=== PATIENT | female | born 1930 | race African-American/Black ===

== ENCOUNTER 2018-12-28 08:23 | Inpatient (IN) | payer OTHER ==
[~2018-12-28] VITALS: Ht 162.6 cm; Wt 53.5 kg
[2018-12-28] MEDS: ACETYLCYSTEINE 100MG/ML 10% VIAL 4ML INH SCH ×2 (00:40→11:15)
[2018-12-28] MEDS ORDERED: LEVOFLOXACIN 750MG PREMIX 150 ML IV ONE (09:45)
[2018-12-28] MEDS ORDERED: PIPERACILLIN/TAZ 3.375G PREMIX 50 ML IV ONE (09:45)
[2018-12-28 09:50] LABS: HEMATOCRIT. 24.1 % (36.0-48.0); HEMOGLOBIN. 7.7 g/dL (12.0-16.0); MEAN CORPUSCULAR HEMOGLOBIN 25.2 pg (28.0-32.0); MEAN CORPUSCULAR VOLUME 79.2 fL (81.0-99.0); MEAN PLATELET VOLUME 8.3 fl (7.4-10.4); PLATELET 276 x1000/uL (130-400); RED BLOOD CELL COUNT 3.04 mill/uL (4.2-5.4); RED CELL DISTRIBUTION WIDTH 18.4 % (11.6-14.6)
[2018-12-28 09:56] LABS: INR 1.2
[2018-12-28 09:57] LABS: CHLORIDE 103 mEq/L (98-107)
[2018-12-28 10:02] LABS: BG BASE EXCESS 5.1 mmol/L (-2.0-2.0); BG CARBOXYHEMOGLOBIN 1.2 % (0.5-1.5); BG DEOXYHEMOGLOBIN 0.2 % (0.0-5.0); BG FRACTION INSPIRED OXYGEN 100; BG HCO3 ACT 28.4 mmol/L (22.0-26.0); BG METHEMOGLOBIN 0.1 % (0.0-1.5); BG OXYGEN SATURATION 99.8 % (92.0-98.5); BG OXYHEMOGLOBIN 98.5 % (94.0-97.0); BG PCO2 35.7 mmHg (35.0-45.0); BG PH 7.518 (7.350-7.450); BG PO2 203.5 mmHg (75.0-100.0); BG SAMPLE SITE RIGHT RADIAL; BG TIDAL VOLUME(mL) 450 mL; BG TOTAL HEMOGLOBIN 7.2 g/dL (12.0-18.0); BG VENT MODE VENT - A/C; BG VENT RATE 14 set
[2018-12-28 10:28] LABS: PLATELET ESTIMATE NORMAL
[2018-12-28 10:50] LABS: CLARITY URINE TURBID (CLEAR); COLOR URINE AMBER (YELLOW); KETONES URINE NEGATIVE (NEGATIVE); LEUKOCYTE ESTERASE URINE 1+ (NEGATIVE); NITRITE URINE NEGATIVE (NEGATIVE); OCCULT BLOOD URINE NEGATIVE (NEGATIVE); PH URINE 5.5 (4.5-8.0); PROTEIN URINE 2+ (NEGATIVE); SPECIFIC GRAVITY URINE 1.022 (1.005-1.030)
[2018-12-28] MEDS ORDERED: TRAMADOL 50MG TABLET PO PRN (11:00)
[2018-12-28] MEDS ORDERED: CLONIDINE 0.1MG TABLET PO PRN (11:00)
[2018-12-28] MEDS ORDERED: IPRATROPIUM/ALBUTEROL 0.5-3(2.5)MG/3ML NEB HHN PRN (11:00)
[2018-12-28] MEDS ORDERED: GUAIFENESIN 200MG/10ML SUGAR FREE UDC PO PRN (11:00)
[2018-12-28] MEDS ORDERED: DOCUSATE SODIUM 100MG CAPSULE PO PRN (11:00)
[2018-12-28] MEDS ORDERED: LORAZEPAM 0.5MG TABLET PO PRN (11:00)
[2018-12-28] MEDS ORDERED: SODIUM CHLORIDE 0.9% 1000ML BAG (SEPSIS BOLUS) IV ONE (11:00)
[2018-12-28] MEDS ORDERED: ONDANSETRON HCL 4MG/2ML INJ IV PRN (11:00)
[2018-12-28] MEDS ORDERED: ZOLPIDEM TARTRATE 5MG TABLET PO PRN (11:00)
[2018-12-28] MEDS ORDERED: ACETAMINOPHEN 325MG TABLET PO PRN (11:00)
[2018-12-28] MEDS ORDERED: MAGNESIUM/ALUMINUM HYDROXIDE/SIMETHICONE 30ML UDC PO PRN (11:00)
[2018-12-28] MEDS ORDERED: NITROGLYCERIN 0.4MG TABLET SL SL PRN (11:00)
[2018-12-28] MEDS ORDERED: SODIUM CHLORIDE 0.9% IV SCH (11:15)
[2018-12-28] MEDS: IPRATROPIUM/ALBUTEROL 0.5-3(2.5)MG/3ML NEB HHN SCH (11:15)
[2018-12-28 15:34] LABS: CREATINE KINASE 48 IU/L (26-192)
[2018-12-28 15:35] LABS: CREATINE KINASE MB FRACTION 2.4 ng/mL (0.5-3.6)
[2018-12-28 17:21] LABS: TOTAL IRON BINDING CAPACITY 136 ug/dL (250-450)
[2018-12-28 17:42] LABS: FOLIC ACID (FOLATE) SERUM >20 ng/mL ng/mL (>5.38)
[2018-12-28 17:54] LABS: VITAMIN B12 SERUM >2000 pg/mL pg/mL (211-911)
[2018-12-28 21:00] VITALS: BP 99/48
[2018-12-28 22:00] VITALS: BP 94/44
[2018-12-28] MEDS ORDERED: FURO-151 MT (22:03)
[2018-12-28] MEDS ORDERED: FERR325T6 MT (22:03)
[2018-12-28] MEDS ORDERED: ALBU05 NEB (22:03)
[2018-12-28] MEDS ORDERED: MULT-470 PO (22:03)
[2018-12-28] MEDS ORDERED: MUC103 INH (22:03)
[2018-12-28] MEDS ORDERED: COR12 MT (22:03)
[2018-12-28] MEDS ORDERED: FAMO-134 PO (22:03)
[2018-12-28] MEDS ORDERED: LORA-249 PO (22:03)
[2018-12-28] MEDS ORDERED: AMLO5TAB4 MT (22:03)
[2018-12-28] MEDS ORDERED: MELA5TAB19 PO (22:03)
[2018-12-28] MEDS ORDERED: LIP40 MT (22:03)
[2018-12-28] MEDS ORDERED: LACT10SO6 MT (22:03)
[2018-12-28] MEDS ORDERED: TICA90TA MT (22:03)
[2018-12-28] MEDS ORDERED: ATROV IH (22:03)
[2018-12-28] MEDS ORDERED: ASCO500C15 PO (22:03)
[2018-12-28] MEDS: ENOXAPARIN 40MG/0.4ML SYR SUBCUT SCH (23:19)
[2018-12-28] MEDS: PIPERACILLIN/TAZ 3.375G PREMIX 50 ML IV SCH (23:21)
[2018-12-28] MEDS: GUAIFENESIN/DM 600MG/30MG ER TAB 12HR PO SCH (23:21)
[2018-12-29] VITALS (12 sets, daily range): BP systolic 89–104; BP diastolic 45–62
[2018-12-29] MEDS ORDERED: VANCOMYCIN 1500MG in DEXTROSE 5% WATER 250ML IV NR ×2
[2018-12-29] MEDS: IPRATROPIUM/ALBUTEROL 0.5-3(2.5)MG/3ML NEB HHN SCH ×6 (00:40→20:40)
[2018-12-29 00:53] LABS: CREATINE KINASE 41 IU/L (26-192)
[2018-12-29] MEDS: PIPERACILLIN/TAZ 3.375G PREMIX 50 ML IV SCH (05:20)
[2018-12-29 08:18] LABS: BG BASE EXCESS 5.4 mmol/L (-2.0-2.0); BG CARBOXYHEMOGLOBIN 0.3 % (0.5-1.5); BG DEOXYHEMOGLOBIN 19.7 % (0.0-5.0); BG FRACTION INSPIRED OXYGEN 35; BG HCO3 ACT 30.9 mmol/L (22.0-26.0); BG METHEMOGLOBIN 0.4 % (0.0-1.5); BG OXYGEN SATURATION 80.2 % (92.0-98.5); BG OXYHEMOGLOBIN 79.6 % (94.0-97.0); BG PCO2 51.3 mmHg (35.0-45.0); BG PH 7.397 (7.350-7.450); BG PO2 46.3 mmHg (75.0-100.0); BG PRESSURE SUPPORT 14; BG SAMPLE SITE RIGHT RADIAL; BG TIDAL VOLUME(mL) 450 mL; BG TOTAL HEMOGLOBIN 7.2 g/dL (12.0-18.0); BG VENT MODE VENT - SIMV; BG VENT RATE 10 set
[2018-12-29] MEDS: ASPIRIN 325MG EC TABLET PO SCH (08:35)
[2018-12-29] MEDS: ACETYLCYSTEINE 100MG/ML 10% VIAL 4ML INH SCH ×2 (08:47→16:12)
[2018-12-29] MEDS: PANTOPRAZOLE SODIUM 40 MG/VIAL IV SCH (08:56)
[2018-12-29] MEDS: GUAIFENESIN/DM 600MG/30MG ER TAB 12HR PO SCH ×2 (09:51→21:07)
[2018-12-29] MEDS: VANCOMYCIN 500 MG PREMIX 100 ML IV SCH ×2 (10:59→20:53)
[2018-12-29] MEDS: DEXT 5%/0.9% NACL 1,000 ML IV SCH (12:36)
[2018-12-29] MEDS: PIPERACILLIN/TAZOBACTAM 2.25 G in DEXTROSE 5% WATER 50 ML IV SCH ×3 (12:36→23:11)
[2018-12-29 13:26] LABS: BG BASE EXCESS 3.1 mmol/L (-2.0-2.0); BG DEOXYHEMOGLOBIN 0.9 % (0.0-5.0); BG FRACTION INSPIRED OXYGEN 80; BG METHEMOGLOBIN 0.6 % (0.0-1.5); BG OXYGEN SATURATION 99.1 % (92.0-98.5); BG OXYHEMOGLOBIN 98.5 % (94.0-97.0); BG PCO2 44.9 mmHg (35.0-45.0); BG PH 7.413 (7.350-7.450); BG PO2 236.5 mmHg (75.0-100.0); BG PRESSURE SUPPORT 14; BG SAMPLE SITE RIGHT BRACHIAL; BG TIDAL VOLUME(mL) 450 mL; BG TOTAL HEMOGLOBIN 7.3 g/dL (12.0-18.0); BG VENT MODE VENT - SIMV; BG VENT RATE 10 set
[2018-12-29] MEDS ORDERED: VANCOMYCIN 1 G PREMIX 200 ML IV SCH (18:00)
[2018-12-29] MEDS: ENOXAPARIN 40MG/0.4ML SYR SUBCUT SCH (21:48)
[2018-12-30] VITALS (13 sets, daily range): BP systolic 93–160; BP diastolic 45–74
[2018-12-30] MEDS: ACETYLCYSTEINE 100MG/ML 10% VIAL 4ML INH SCH ×3 (00:01→15:09)
[2018-12-30] MEDS: IPRATROPIUM/ALBUTEROL 0.5-3(2.5)MG/3ML NEB HHN SCH ×7 (04:06→20:23)
[2018-12-30] MEDS: DEXT 5%/0.9% NACL 1,000 ML IV SCH ×2 (04:35→13:55)
[2018-12-30] MEDS: MORPHINE SULFATE 2 MG/ML CPJ (NOT FOR IM USE) IV PRN ×3 (04:45→20:41)
[2018-12-30] MEDS: PIPERACILLIN/TAZOBACTAM 2.25 G in DEXTROSE 5% WATER 50 ML IV SCH ×3 (05:20→18:58)
[2018-12-30 06:40] LABS: BASOPHILS % 0.3 % (0.0-2.0); EOSINOPHILS % 1.3 % (0.0-5.0); HEMATOCRIT. 23.3 % (36.0-48.0); HEMOGLOBIN. 7.5 g/dL (12.0-16.0); LYMPHOCYTES % 7.8 % (20.0-50.0); MEAN CORPUSCULAR HEMOGLOBIN 25.9 pg (28.0-32.0); MEAN CORPUSCULAR VOLUME 80.4 fL (81.0-99.0); MEAN PLATELET VOLUME 8.7 fl (7.4-10.4); MONOCYTES % 6.7 % (2.0-8.0); NEUTROPHILS % 83.9 % (40.0-76.0); PLATELET 234 x1000/uL (130-400); RED BLOOD CELL COUNT 2.89 mill/uL (4.2-5.4); RED CELL DISTRIBUTION WIDTH 18.7 % (11.6-14.6)
[2018-12-30 07:50] LABS: CHLORIDE 106 mEq/L (98-107)
[2018-12-30] MEDS: ASPIRIN 325MG EC TABLET PO SCH (09:00)
[2018-12-30] MEDS: GUAIFENESIN/DM 600MG/30MG ER TAB 12HR PO SCH (09:38)
[2018-12-30] MEDS: PANTOPRAZOLE SODIUM 40 MG/VIAL IV SCH (09:38)
[2018-12-30] MEDS: VANCOMYCIN 500 MG PREMIX 100 ML IV SCH (09:39)
[2018-12-30] MEDS ORDERED: POTASSIUM CHLORIDE INJ 40 MEQ in DEXT 5% WATER 250 ML IV SCH (14:00)
[2018-12-31] MEDS ORDERED: FAMOTIDINE 20MG/2ML VIAL IV SCH (09:00)
== END 2018-12-30 20:55 | disposition short-term general hospital (02) | DRG 871 ==
LOC: ER 08:23 → EDBD 08:23 → 5EST 10:33 → EDBEDREQ 10:36 → EDBEDREQTM 10:38 → SUPCPDRO 10:51 → ENRESERV 19:27
PROVIDERS: ADMIT Internal Medicine; ATTEND Internal Medicine
PROC: 5A1945Z Respiratory Ventilation, 24-96 Consecutive Hours (ICD-10-PCS; principal; 2018-12-28)
DX: A41.9 Sepsis, unspecified organism (principal); E43 Unspecified severe protein-calorie malnutrition; J96.21 Acute and chronic respiratory failure with hypoxia; K72.00 Acute and subacute hepatic failure without coma; J18.1 Lobar pneumonia, unspecified organism; N39.0 Urinary tract infection, site not specified; E83.51 Hypocalcemia; D63.8 Anemia in other chronic diseases classified elsewhere; E87.6 Hypokalemia; I11.0 Hypertensive heart disease with heart failure; I25.10 Atherosclerotic heart disease of native coronary artery without angina pectoris; I50.9 Heart failure, unspecified; Z86.14 Personal history of Methicillin resistant Staphylococcus aureus infection; Z87.01 Personal history of pneumonia (recurrent); I25.2 Old myocardial infarction; Z87.440 Personal history of urinary (tract) infections; Z93.0 Tracheostomy status; Z68.20 Body mass index [BMI] 20.0-20.9, adult
CPT/HCPCS: 36415; 36600; 71045; 80048; 80061; 80202; 81003; 82375; 82550; 82553; 82607; 82746; 82805; 83036; 83540; 83550; 83605; 83880; 84145; 84443; 84484; 87070; 93005; 93306; 93970; 94002; 94003; 94640; 99291; A6261; C9113; J1650; J1956; J2270; J2543; J3370; J3480; J7042; J7060; J7608; J7620

== ENCOUNTER 2019-01-11 14:53 | Emergency (ER) | payer OTHER ==
[~2019-01-11] VITALS: Ht 157.5 cm; Wt 50.0 kg
[~2019-01-11 14:53] MED LIST: ALBU05 NEB; AMLO5TAB4 MT; ASCO500C15 PO; ATROV IH; COR12 MT; FAMO-134 PO; FERR325T6 MT; FURO-151 MT; LACT10SO6 MT; LIP40 MT; LORA-249 PO; MELA5TAB19 PO; MUC103 INH; MULT-470 PO; TICA90TA MT
[2019-01-11] MEDS ORDERED: SODIUM CHLORIDE 0.9% 1,000 ML IV ONE (15:54)
[2019-01-11 16:32] LABS: BASOPHILS % 0.1 % (0.0-2.0); EOSINOPHILS % 0.3 % (0.0-5.0); HEMATOCRIT. 26.2 % (36.0-48.0); HEMOGLOBIN. 8.4 g/dL (12.0-16.0); LYMPHOCYTES % 11.3 % (20.0-50.0); MEAN CORPUSCULAR HEMOGLOBIN 26.7 pg (28.0-32.0); MEAN CORPUSCULAR VOLUME 83.4 fL (81.0-99.0); MEAN PLATELET VOLUME 9.5 fl (7.4-10.4); NEUTROPHILS % 81.3 % (40.0-76.0); PLATELET 157 x1000/uL (130-400); RED BLOOD CELL COUNT 3.14 mill/uL (4.2-5.4); RED CELL DISTRIBUTION WIDTH 19.5 % (11.6-14.6)
[2019-01-11 16:36] LABS: CHLORIDE 102 mEq/L (98-107)
[2019-01-11 17:46] LABS: CLARITY URINE TURBID (CLEAR); COLOR URINE DARK YELLOW (YELLOW); KETONES URINE TRACE (NEGATIVE); LEUKOCYTE ESTERASE URINE 1+ (NEGATIVE); NITRITE URINE NEGATIVE (NEGATIVE); OCCULT BLOOD URINE 2+ (NEGATIVE); PROTEIN URINE 1+ (NEGATIVE); SPECIFIC GRAVITY URINE 1.025 (1.005-1.030)
[2019-01-11 21:33] VITALS: BP 108/60
== END 2019-01-11 21:52 | disposition home or self-care (01) ==
LOC: ER 14:53
DX: R09.02 Hypoxemia (principal); N39.0 Urinary tract infection, site not specified; I10 Essential (primary) hypertension; I25.2 Old myocardial infarction; Z93.0 Tracheostomy status; Z88.2 Allergy status to sulfonamides
CPT/HCPCS: 36415; 71045; 80053; 81003; 83880; 84484; 85025; 93005; 94002; 99284; J7030

== ENCOUNTER 2019-01-30 17:26 | Inpatient (IN) | payer OTHER ==
[~2019-01-30] VITALS: Ht 167.6 cm; Wt 49.5 kg
[2019-01-30] MEDS ORDERED: PIPERACILLIN/TAZ 3.375G PREMIX 50 ML IV ONE (17:45)
[2019-01-30] MEDS ORDERED: SODIUM CHLORIDE 0.9% 1000ML BAG (SEPSIS BOLUS) IV ONE (17:45)
[2019-01-30] MEDS ORDERED: VANCOMYCIN 1 G PREMIX 200 ML IV ONE (17:45)
[2019-01-30] MEDS ORDERED: METHYLPREDNISOLONE SOD SUCC 125 MG/2 ML VIAL IV STA (17:56)
[2019-01-30] MEDS ORDERED: MAGNESIUM 2 G PREMIX 50 ML IV ONE (18:00)
[2019-01-30] MEDS ORDERED: IPRATROPIUM/ALBUTEROL 0.5-3(2.5)MG/3ML NEB HHN ONE (18:00)
[2019-01-30] MEDS ORDERED: IPRATROPIUM/ALBUTEROL 0.5-3(2.5)MG/3ML NEB ONE (18:01)
[2019-01-30] MEDS ORDERED: PIPERACILLIN/TAZOBACTAM 3.375 G in DEXT 5% WATER 100 ML IV SCH (18:15)
[2019-01-30 18:27] LABS: BASOPHILS % 0.4 % (0.0-2.0); EOSINOPHILS % 0.8 % (0.0-5.0); HEMATOCRIT. 30.3 % (36.0-48.0); HEMOGLOBIN. 9.6 g/dL (12.0-16.0); LYMPHOCYTES % 18.3 % (20.0-50.0); MEAN CORPUSCULAR HEMOGLOBIN 26.3 pg (28.0-32.0); MEAN CORPUSCULAR VOLUME 83.2 fL (81.0-99.0); MEAN PLATELET VOLUME 8.7 fl (7.4-10.4); MONOCYTES % 6.8 % (2.0-8.0); NEUTROPHILS % 73.7 % (40.0-76.0); PLATELET 233 x1000/uL (130-400); RED BLOOD CELL COUNT 3.64 mill/uL (4.2-5.4); RED CELL DISTRIBUTION WIDTH 18.6 % (11.6-14.6)
[2019-01-30 18:34] LABS: CHLORIDE 104 mEq/L (98-107); INR 1.1; PARTIAL THROMBOPLASTIN TIME 25.2 sec (23.4-31.0); PROTHROMBIN TIME 11.1 sec (9.6-11.0)
[2019-01-30 18:38] LABS: ETHANOL BLOOD < 10 mg/dL
[2019-01-30 18:44] LABS: BG BASE EXCESS 4.7 mmol/L (-2.0-2.0); BG CARBOXYHEMOGLOBIN 0.2 % (0.5-1.5); BG DEOXYHEMOGLOBIN 7.1 % (0.0-5.0); BG FRACTION INSPIRED OXYGEN 60; BG HCO3 ACT 34.6 mmol/L (22.0-26.0); BG METHEMOGLOBIN 0.2 % (0.0-1.5); BG OXYGEN SATURATION 92.9 % (92.0-98.5); BG OXYHEMOGLOBIN 92.5 % (94.0-97.0); BG PH 7.208 (7.350-7.450); BG PO2 80.4 mmHg (75.0-100.0); BG SAMPLE SITE RIGHT RADIAL; BG TOTAL HEMOGLOBIN 10.4 g/dL (12.0-18.0); BG VENT MODE MASK - AEROSOL
[2019-01-30 20:22] LABS: BG BASE EXCESS 5.6 mmol/L (-2.0-2.0); BG DEOXYHEMOGLOBIN 30.5 % (0.0-5.0); BG FRACTION INSPIRED OXYGEN 40; BG HCO3 ACT 30.6 mmol/L (22.0-26.0); BG METHEMOGLOBIN 0.2 % (0.0-1.5); BG OXYGEN SATURATION 69.4 % (92.0-98.5); BG OXYHEMOGLOBIN 69.3 % (94.0-97.0); BG PCO2 47.1 mmHg (35.0-45.0); BG PH 7.431 (7.350-7.450); BG SAMPLE SITE RIGHT RADIAL; BG TIDAL VOLUME(mL) 550 mL; BG TOTAL HEMOGLOBIN 9.2 g/dL (12.0-18.0); BG VENT MODE VENT - A/C; BG VENT RATE 16 set
[2019-01-30] MEDS ORDERED: DEXT 5%/LACTATED RINGERS 1,000 ML IV SCH (20:51)
[2019-01-30] MEDS ORDERED: LORAZEPAM 2MG/ML CPJ IV PRN ×2 (21:00→22:00)
[2019-01-30] MEDS ORDERED: NITROGLYCERIN 0.4MG TABLET SL SL PRN ×2 (21:00→22:00)
[2019-01-30] MEDS ORDERED: LISINOPRIL 20MG TABLET PO SCH (21:00)
[2019-01-30] MEDS ORDERED: ACETAMINOPHEN 325MG TABLET PO PRN ×2 (21:00→22:00)
[2019-01-30] MEDS ORDERED: PIPERACILLIN/TAZ 3.375G PREMIX 50 ML IV SCH (21:00)
[2019-01-30] MEDS ORDERED: ZOLPIDEM TARTRATE 5MG TABLET PO PRN ×2 (21:00→22:00)
[2019-01-30] MEDS ORDERED: HYDROCODONE/ACETAMINOPHEN 10/325MG TABLET PO PRN ×2 (21:00→22:00)
[2019-01-30] MEDS ORDERED: ENOXAPARIN 40MG/0.4ML SYR SUBCUT SCH (21:00)
[2019-01-30] MEDS ORDERED: DIPHENHYDRAMINE 50MG/ML VIAL IV PRN ×2 (21:00→22:00)
[2019-01-30] MEDS ORDERED: GUAIFENESIN/DM 600MG/30MG ER TAB 12HR PO SCH (21:00)
[2019-01-30] MEDS ORDERED: ONDANSETRON HCL 4MG/2ML INJ IV PRN ×2 (21:00→22:00)
[2019-01-30] MEDS ORDERED: FAMOTIDINE 20MG TABLET PO SCH (21:00)
[2019-01-30] MEDS ORDERED: FUROSEMIDE 20MG TABLET PO SCH (21:00)
[2019-01-30] MEDS ORDERED: GUAIFENESIN 200MG/10ML SUGAR FREE UDC PO PRN ×2 (21:00→22:00)
[2019-01-30] MEDS ORDERED: MAGNESIUM/ALUMINUM HYDROXIDE/SIMETHICONE 30ML UDC PO PRN ×2 (21:00→22:00)
[2019-01-30] MEDS ORDERED: MORPHINE SULFATE 2 MG/ML CPJ (NOT FOR IM USE) IV PRN ×2 (21:00→22:00)
[2019-01-30] MEDS ORDERED: CLONIDINE 0.1MG TABLET PO PRN ×2 (21:00→22:00)
[2019-01-30] MEDS ORDERED: IPRATROPIUM/ALBUTEROL 0.5-3(2.5)MG/3ML NEB NEB PRN ×2 (21:00→22:00)
[2019-01-30] MEDS ORDERED: DOCUSATE SODIUM 100MG CAPSULE PO PRN ×2 (21:00→22:00)
[2019-01-30] MEDS ORDERED: IPRATROPIUM/ALBUTEROL 0.5-3(2.5)MG/3ML NEB HHN SCH (21:00)
[2019-01-30 21:06] LABS: BG BASE EXCESS 3.6 mmol/L (-2.0-2.0); BG CARBOXYHEMOGLOBIN 0.3 % (0.5-1.5); BG DEOXYHEMOGLOBIN 2.1 % (0.0-5.0); BG FRACTION INSPIRED OXYGEN 80; BG HCO3 ACT 27.3 mmol/L (22.0-26.0); BG METHEMOGLOBIN 0.2 % (0.0-1.5); BG OXYGEN SATURATION 97.9 % (92.0-98.5); BG OXYHEMOGLOBIN 97.4 % (94.0-97.0); BG PCO2 37.7 mmHg (35.0-45.0); BG PH 7.478 (7.350-7.450); BG SAMPLE SITE LEFT RADIAL; BG TIDAL VOLUME(mL) 550 mL; BG TOTAL HEMOGLOBIN 9.6 g/dL (12.0-18.0); BG VENT MODE VENT - A/C; BG VENT RATE 16 set
[2019-01-30 21:50] LABS: FOLIC ACID (FOLATE) SERUM > 20.00 ng/mL (>5.38); VITAMIN B12 SERUM > 2000.0 pg/mL (211-911)
[2019-01-30 22:00] VITALS: BP 140/78
[2019-01-30] MEDS ORDERED: METHYLPREDNISOLONE SOD SUCC 125 MG/2 ML VIAL IV SCH (22:00)
[2019-01-30 22:30] VITALS: BP 170/87
[2019-01-30 23:00] VITALS: BP 168/78
[2019-01-30 23:30] VITALS: BP 162/75
[2019-01-31] VITALS (48 sets, daily range): BP systolic 101–187; BP diastolic 55–106
[2019-01-31] MEDS ORDERED: LISINOPRIL 20MG TABLET PO SCH
[2019-01-31] MEDS ORDERED: FAMOTIDINE 20MG TABLET PO SCH
[2019-01-31] MEDS ORDERED: FUROSEMIDE 20MG TABLET PO SCH
[2019-01-31] MEDS: IPRATROPIUM/ALBUTEROL 0.5-3(2.5)MG/3ML NEB HHN SCH ×6 (00:48→20:49)
[2019-01-31] MEDS: METHYLPREDNISOLONE SOD SUCC 125 MG/2 ML VIAL IV SCH ×2 (00:59→05:23)
[2019-01-31] MEDS: GUAIFENESIN/DM 600MG/30MG ER TAB 12HR PO SCH ×3 (01:00→21:00)
[2019-01-31] MEDS: PIPERACILLIN/TAZOBACTAM 3.375 G in DEXT 5% WATER 100 ML IV SCH ×3 (02:03→17:37)
[2019-01-31] MEDS ORDERED: VANCOMYCIN 1 G PREMIX 200 ML IV SCH (04:00)
[2019-01-31 06:00] LABS: BASOPHILS % 0.1 % (0.0-2.0); HEMATOCRIT. 28.1 % (36.0-48.0); HEMOGLOBIN. 9.3 g/dL (12.0-16.0); MEAN PLATELET VOLUME 8.6 fl (7.4-10.4); MONOCYTES % 1.1 % (2.0-8.0); NEUTROPHILS % 83.8 % (40.0-76.0); PLATELET 221 x1000/uL (130-400); RED BLOOD CELL COUNT 3.43 mill/uL (4.2-5.4); RED CELL DISTRIBUTION WIDTH 18.3 % (11.6-14.6)
[2019-01-31 06:09] LABS: CHLORIDE 105 mEq/L (98-107)
[2019-01-31 06:28] LABS: CREATINE KINASE 36 IU/L (26-192)
[2019-01-31] MEDS ORDERED: KCL 20MEQ/100ML PREMIX 100 ML IV SCH (08:00)
[2019-01-31] MEDS ORDERED: ASPIRIN 325MG EC TABLET PO SCH (09:00)
[2019-01-31] MEDS: SPIRONOLACTONE 25MG TABLET PO SCH (09:00)
[2019-01-31] MEDS: ASPIRIN 325MG EC TABLET PO SCH (09:00)
[2019-01-31] MEDS ORDERED: SPIRONOLACTONE 25MG TABLET PO SCH (09:00)
[2019-01-31 09:30] LABS: BG BASE EXCESS 5.9 mmol/L (-2.0-2.0); BG CARBOXYHEMOGLOBIN 0.3 % (0.5-1.5); BG HCO3 ACT 28.1 mmol/L (22.0-26.0); BG METHEMOGLOBIN 0.5 % (0.0-1.5); BG OXYHEMOGLOBIN 98.2 % (94.0-97.0); BG PH 7.561 (7.350-7.450); BG PO2 169.3 mmHg (75.0-100.0); BG SAMPLE SITE RIGHT BRACHIAL; BG TIDAL VOLUME(mL) 500 mL; BG TOTAL HEMOGLOBIN 10.3 g/dL (12.0-18.0); BG VENT MODE VENT - A/C; BG VENT RATE 16 set
[2019-01-31] MEDS: ENOXAPARIN 40MG/0.4ML SYR SUBCUT SCH (09:46)
[2019-01-31] MEDS: HYDRALAZINE 20MG/ML VIAL IV PRN (09:51)
[2019-01-31] MEDS: METHYLPREDNISOLONE SOD SUCC 40 MG/ML VIAL IV SCH ×2 (10:44→17:37)
[2019-01-31] MEDS: FUROSEMIDE 20MG/2ML VIAL IVP SCH ×2 (10:45→17:37)
[2019-01-31] MEDS: DEXT 5%/LACTATED RINGERS 1,000 ML IV SCH ×2 (14:25)
[2019-01-31] MEDS: ACETYLCYSTEINE 100MG/ML 10% VIAL 4ML INH SCH (15:19)
[2019-01-31 18:30] LABS: CLARITY URINE CLEAR (CLEAR); COLOR URINE YELLOW (YELLOW); KETONES URINE NEGATIVE (NEGATIVE); LEUKOCYTE ESTERASE URINE NEGATIVE (NEGATIVE); NITRITE URINE NEGATIVE (NEGATIVE); OCCULT BLOOD URINE NEGATIVE (NEGATIVE); PH URINE 7.5 (4.5-8.0); PROTEIN URINE NEGATIVE (NEGATIVE); UROBILINOGEN URINE 0.2 E.U./dL (0.2-1.0)
[2019-01-31] MEDS: FAMOTIDINE 20MG/2ML VIAL IV SCH (21:49)
[2019-01-31] MEDS ORDERED: VANCOMYCIN 750 MG PREMIX 150 ML IV SCH (23:00)
[2019-02-01] VITALS (29 sets, daily range): BP systolic 116–177; BP diastolic 60–132
[2019-02-01] MEDS: ACETYLCYSTEINE 100MG/ML 10% VIAL 4ML INH SCH ×3 (00:22→16:34)
[2019-02-01] MEDS: IPRATROPIUM/ALBUTEROL 0.5-3(2.5)MG/3ML NEB HHN SCH ×5 (00:22→16:34)
[2019-02-01] MEDS: PIPERACILLIN/TAZOBACTAM 3.375 G in DEXT 5% WATER 100 ML IV SCH ×2 (02:20→10:17)
[2019-02-01] MEDS: METHYLPREDNISOLONE SOD SUCC 40 MG/ML VIAL IV SCH ×2 (02:20→10:17)
[2019-02-01] MEDS: DEXT 5%/LACTATED RINGERS 1,000 ML IV SCH (02:29)
[2019-02-01] MEDS: HYDRALAZINE 20MG/ML VIAL IV PRN ×2 (05:23→17:12)
[2019-02-01] MEDS: FUROSEMIDE 20MG/2ML VIAL IVP SCH ×2 (07:15→08:07)
[2019-02-01] MEDS: FAMOTIDINE 20MG/2ML VIAL IV SCH (08:07)
[2019-02-01] MEDS: ENOXAPARIN 40MG/0.4ML SYR SUBCUT SCH (08:08)
[2019-02-01] MEDS: GUAIFENESIN/DM 600MG/30MG ER TAB 12HR PO SCH (08:08)
[2019-02-01] MEDS: ASPIRIN 325MG EC TABLET PO SCH (08:09)
[2019-02-01] MEDS: SPIRONOLACTONE 25MG TABLET PO SCH (08:09)
[2019-02-01 09:19] LABS: BG BASE EXCESS 6.4 mmol/L (-2.0-2.0); BG CARBOXYHEMOGLOBIN 0.2 % (0.5-1.5); BG DEOXYHEMOGLOBIN 1.5 % (0.0-5.0); BG FRACTION INSPIRED OXYGEN 35; BG HCO3 ACT 30.7 mmol/L (22.0-26.0); BG METHEMOGLOBIN 0.3 % (0.0-1.5); BG OXYGEN SATURATION 98.5 % (92.0-98.5); BG PCO2 43.2 mmHg (35.0-45.0); BG SAMPLE SITE LEFT RADIAL; BG TIDAL VOLUME(mL) 500 mL; BG TOTAL HEMOGLOBIN 9.5 g/dL (12.0-18.0); BG VENT MODE VENT - A/C; BG VENT RATE 12 set
[2019-02-01 09:52] LABS: CHLORIDE 104 mEq/L (98-107)
[2019-02-01] MEDS ORDERED: KCL 20MEQ/100ML PREMIX 100 ML IV NR (10:15)
[2019-02-01] MEDS ORDERED: VANCOMYCIN 1 G PREMIX 200 ML IV SCH (14:00)
[2019-02-01] MEDS ORDERED: VANCOMYCIN 750 MG PREMIX 150 ML IV SCH (14:00)
== END 2019-02-01 17:53 | disposition short-term general hospital (02) | DRG 871 ==
LOC: ER 17:26 → EDBEDREQSVC 20:51 → EDBEDREQ 20:51 → EDBEDREQTM 20:51 → ENRESERV 21:02 → ER 21:54 → CVICU 22:56
PROVIDERS: ADMIT Internal Medicine; ATTEND Internal Medicine
PROC: 5A1945Z Respiratory Ventilation, 24-96 Consecutive Hours (ICD-10-PCS; principal; 2019-01-30)
DX: A41.9 Sepsis, unspecified organism (principal); E43 Unspecified severe protein-calorie malnutrition; J96.22 Acute and chronic respiratory failure with hypercapnia; J69.0 Pneumonitis due to inhalation of food and vomit; J96.21 Acute and chronic respiratory failure with hypoxia; J44.1 Chronic obstructive pulmonary disease with (acute) exacerbation; I50.30 Unspecified diastolic (congestive) heart failure; Z68.1 Body mass index [BMI] 19.9 or less, adult; E83.51 Hypocalcemia; I25.10 Atherosclerotic heart disease of native coronary artery without angina pectoris; E87.6 Hypokalemia; D63.8 Anemia in other chronic diseases classified elsewhere; I11.0 Hypertensive heart disease with heart failure; I25.2 Old myocardial infarction; Z86.14 Personal history of Methicillin resistant Staphylococcus aureus infection; Z95.5 Presence of coronary angioplasty implant and graft; Z88.2 Allergy status to sulfonamides; Z79.899 Other long term (current) drug therapy
CPT/HCPCS: 36415; 36600; 71045; 80048; 80061; 80202; 80320; 81003; 82375; 82550; 82553; 82607; 82746; 82805; 83036; 83540; 83550; 83605; 83735; 84145; 84484; 86850; 86900; 87070; 87077; 87186; 93005; 93306; 93970; 94002; 94003; 94640; 96365; 96366; 96368; 96375; 99291; J0360; J1650; J1940; J2543; J2920; J2930; J3370; J3475; J3480; J3490; J7030; J7040; J7060; J7608; J7620; A4315; G0480

== ENCOUNTER 2019-12-29 03:54 | Inpatient (IN) | payer OTHER ==
[~2019-12-29] VITALS: Ht 162.6 cm; Wt 58.5 kg
[2019-12-29] VITALS (53 sets, daily range): BP systolic 107–185; BP diastolic 38–123
[2019-12-29] MEDS: IPRATROPIUM/ALBUTEROL 0.5-3(2.5)MG/3ML NEB HHN SCH ×4 (00:27→21:02)
[~2019-12-29 03:54] MED LIST changes: -LACT10SO6 MT; -TICA90TA MT
[2019-12-29] MEDS ORDERED: IPRATROPIUM BROMIDE (0.02%) 0.5MG/2.5ML NEB HHN STA ×2 (04:26→05:41)
[2019-12-29] MEDS ORDERED: ACETYLCYSTEINE 100MG/ML 10% VIAL 4ML INH ONE (04:30)
[2019-12-29 04:44] LABS: BASOPHILS % 0.3 % (0.0-2.0); EOSINOPHILS % 2.6 % (0.0-5.0); HEMATOCRIT. 38.6 % (36.0-48.0); HEMOGLOBIN. 12.2 g/dL (12.0-16.0); LYMPHOCYTES % 14.8 % (20.0-50.0); MEAN CORPUSCULAR HEMOGLOBIN 26.6 pg (28.0-32.0); MEAN CORPUSCULAR VOLUME 84.2 fL (81.0-99.0); MEAN PLATELET VOLUME 11.5 fl (7.4-10.4); MONOCYTES % 6.5 % (2.0-8.0); NEUTROPHILS % 75.8 % (40.0-76.0); PLATELET 130 x1000/uL (130-400); RED BLOOD CELL COUNT 4.59 mill/uL (4.2-5.4); RED CELL DISTRIBUTION WIDTH 15.8 % (11.6-14.6)
[2019-12-29 04:51] LABS: CHLORIDE 98 mEq/L (98-107)
[2019-12-29] MEDS: ALBUTEROL (0.083%) 2.5MG/3ML NEB HHN SCH ×3 (04:53→05:28)
[2019-12-29] MEDS ORDERED: ALBUTEROL (0.083%) 2.5MG/3ML NEB HHN STA (05:41)
[2019-12-29] MEDS ORDERED: VANCOMYCIN 1 G PREMIX 200 ML IV SCH ×2 (05:45→20:00)
[2019-12-29] MEDS ORDERED: PIPERACILLIN/TAZOBACTAM 3.375GM/50ML PREMIX IV SCH (05:45)
[2019-12-29] MEDS ORDERED: SODIUM CHLORIDE 3% FOR INH 15ML VIAL NEB INH ONE (05:45)
[2019-12-29] MEDS ORDERED: SODIUM CHLORIDE 3% FOR INH 4ML UD NEB INH SCH ×2 (06:00→22:00)
[2019-12-29] MEDS ORDERED: [UNRECOGNIZED DRUG - CODE] PO (10:09)
[2019-12-29] MEDS ORDERED: ASPI-1497 PO (10:18)
[2019-12-29] MEDS ORDERED: ASCO-339 PO (10:18)
[2019-12-29] MEDS ORDERED: SERT25TA PO (10:18)
[2019-12-29] MEDS ORDERED: ONDANSETRON HCL 4MG/2ML INJ IV PRN (10:30)
[2019-12-29] MEDS ORDERED: PANTOPRAZOLE SODIUM 40 MG/VIAL IV SCH (10:30)
[2019-12-29] MEDS ORDERED: ACETAMINOPHEN 650MG SUPP PR PRN ×2 (10:30)
[2019-12-29 11:27] LABS: BG BASE EXCESS 2.1 mmol/L (-2.0-2.0); BG CARBOXYHEMOGLOBIN 0.5 % (0.5-1.5); BG FRACTION INSPIRED OXYGEN 100; BG HCO3 ACT 30.4 mmol/L (22.0-26.0); BG METHEMOGLOBIN 0.5 % (0.0-1.5); BG PH 7.274 (7.350-7.450); BG PO2 523.4 mmHg (75.0-100.0); BG SAMPLE SITE LEFT BRACHIAL; BG TOTAL HEMOGLOBIN 11.7 g/dL (12.0-18.0); BG VENT MODE VENT - AC
[2019-12-29] MEDS: DEXT 5%/0.45% NACL 1000ML 1,000 ML IV SCH (12:52)
[2019-12-29] MEDS ORDERED: PIPERACILLIN/TAZOBACTAM 3.375 G in DEXT 5% WATER 100 ML IV SCH (17:15)
[2019-12-29] MEDS ORDERED: ALPRAZOLAM 0.25 MG TABLET PO PRN (17:15)
[2019-12-29] MEDS ORDERED: CLONIDINE 0.1MG TABLET GT PRN (17:45)
[2019-12-29] MEDS ORDERED: PIPERACILLIN/TAZOBACTAM 2.25 G in DEXTROSE 5% WATER 50 ML IV SCH (20:00)
[2019-12-29] MEDS: GUAIFENESIN 200MG/10ML SUGAR FREE UDC PO SCH ×2 (20:56)
[2019-12-29] MEDS ORDERED: CARVEDILOL 12.5MG TABLET PEG SCH (21:00)
[2019-12-29] MEDS ORDERED: ACETYLCYSTEINE 100MG/ML 10% VIAL 4ML INH SCH (22:00)
[2019-12-29] MEDS ORDERED: HYDRALAZINE HCL 25MG TABLET GT SCH (22:00)
[2019-12-30] VITALS: BP 94/37
[2019-12-30] MEDS ORDERED: EPINEPHRINE 0.1MG/ML (1:10,000) 10ML SYR ONE
[2019-12-30] MEDS: DEXT 5%/0.45% NACL 1000ML 1,000 ML IV SCH (00:10)
[2019-12-30] MEDS: GUAIFENESIN 200MG/10ML SUGAR FREE UDC PO SCH (00:11)
[2019-12-30 00:50] VITALS: BP 90/37
[2019-12-30] MEDS ORDERED: VANCOMYCIN 750 MG PREMIX 150 ML IV SCH (14:00)
== END 2019-12-30 00:52 | disposition expired | DRG 208 ==
LOC: ER 03:54 → MICUSO 05:35 → ENRESERV 07:24
PROVIDERS: ADMIT Internal Medicine; ATTEND Internal Medicine
PROC: 5A1935Z Respiratory Ventilation, Less than 24 Consecutive Hours (ICD-10-PCS; principal; 2019-12-29)
PROC: 5A12012 Performance of Cardiac Output, Single, Manual (ICD-10-PCS; 2019-12-29)
PROC: 05HY33Z Insertion of Infusion Device into Upper Vein, Percutaneous Approach (ICD-10-PCS; 2019-12-29)
DX: J96.21 Acute and chronic respiratory failure with hypoxia (principal); J69.0 Pneumonitis due to inhalation of food and vomit; G93.1 Anoxic brain damage, not elsewhere classified; Z99.11 Dependence on respirator [ventilator] status; Z66 Do not resuscitate; I25.10 Atherosclerotic heart disease of native coronary artery without angina pectoris; F41.9 Anxiety disorder, unspecified; D72.810 Lymphocytopenia; R13.10 Dysphagia, unspecified; E86.0 Dehydration; I11.0 Hypertensive heart disease with heart failure; I50.9 Heart failure, unspecified; R47.02 Dysphasia; Z20.828 Contact with and (suspected) exposure to other viral communicable diseases; R74.0 Nonspecific elevation of levels of transaminase and lactic acid dehydrogenase [LDH]; Z88.2 Allergy status to sulfonamides; Z79.84 Long term (current) use of oral hypoglycemic drugs; Z79.899 Other long term (current) drug therapy; Z86.73 Personal history of transient ischemic attack (TIA), and cerebral infarction without residual deficits; Z87.01 Personal history of pneumonia (recurrent); Z87.440 Personal history of urinary (tract) infections; Z95.5 Presence of coronary angioplasty implant and graft; Z93.1 Gastrostomy status; I25.2 Old myocardial infarction; Z93.0 Tracheostomy status
CPT/HCPCS: 36415; 36600; 71045; 80053; 82375; 82805; 82962; 83605; 83880; 84145; 84484; 85025; 87635; 92950; 93005; 93970; 94002; 94003; 94640; 99291; C9113; J2543; J3370; J3490; J7060; J7608